=== PATIENT | male | born 1950 | race Caucasian/White ===

== ENCOUNTER 2016-10-15 09:00 | Inpatient (IN) | payer MEDICARE, OTHER ==
[~2016-10-15] VITALS: Ht 177.8 cm; Wt 118.9 kg
--- NOTE | ~2016-10-15 | DS ---
[facility]GE[facility] 66 Y [address] ROOM: [place] [address] LOCATION: [facility] ADMIT DATE: 10/21/2016 Discharge Summary DISCHARGE DATE: 10/23/2016 FAMILY PHYSICIAN: David Sellers MD ATTENDING PHYSICIAN: David Camara PRIMARY DIAGNOSIS: Osteoarthritis, left hip. SECONDARY DIAGNOSIS: 1. Hypertension. 2. Hyperlipidemia. PROCEDURE PERFORMED: Right total hip arthroplasty. HISTORY: The patient is a 66-year-old male, who presents with advanced right hip degenerative joint disease and associated severely compromised activities of daily living. The patient has decided to proceed with total left hip arthroplasty after having been thoroughly counseled regarding the risks, benefits, limitations and alternatives. Please refer to the outpatient clinic notes and admission history and physical for this patient. HOSPITAL COURSE: The patient underwent a total left hip arthroplasty on 10/20/2016 without complications. Spinal anesthesia plus subcutaneous and periarticular local anesthesia was utilized. The patient received 24 hours of perioperative prophylactic antibiotics and remained hemodynamically stable, neurovascularly intact throughout the entire hospital course. The postoperative prophylactic deep venous thrombosis prophylaxis consisted of Xarelto, early mobilization and pneumatic compression devices. Daily physical therapy for gait training, transfer training, and reinforcement of hip dislocation precautions were received. The patient progressed well in physical therapy. On the date of discharge, 10/23/2016, the incision at the hip was healing well and showed no signs of infection. DISPOSITION: DISCHARGE ACTIVITY: The patient is to bear weight as tolerated with strict hip dislocation precautions as instructed. There are to be no dressing changes. Dr. Camara is to be notified immediately if there is any increased pain, fevers, chills, erythema or drainage. DISCHARGE MEDICATIONS: 1. Xarelto 10 mg one tablet p.o. daily for 12 days for postoperative DVT prophylaxis. 2. Hydromorphone 2 mg one to two tablets p.o. every 4 hours p.r.n. for pain. 3. Diazepam one half to one tablet p.o. every 6 hours p.r.n. for muscle [facility] AGE: 66 Y [address] ROOM: [place] [address] LOCATION: [facility] ADMIT DATE: 10/21/2016 Discharge Summary DISCHARGE DATE: 10/23/2016 FAMILY PHYSICIAN: David Sellers MD ATTENDING PHYSICIAN: David Camara. He was then instructed to continue all his other pre-admission medications as instructed by his Internal Medicine doctor. FOLLOWUP: Follow up appointment is to be with Dr. Camara's office on 10/29/2016 for his initial postoperative evaluation. AMELIE TENORIO PA-C FOR MD SOFIA JULIEN/bulll /[id number] d: 10/30/16 0336 t: 11/04/16 0900, DISCHARGE SUMMARY
--- NOTE | ~2016-10-15 | OR ---
PATIENT'S NAME: [facility] AGE: 66 Y [address] ROOM: [address] [address] LOCATION: [facility] ADMIT DATE: 10/21/2016 OR/Procedure Report DISCHARGE DATE: FAMILY PHYSICIAN: Aileen Sellers MD ATTENDING PHYSICIAN: AILEEN SCOTT SURGEON: Aileen Scott MD COMMERCIAL ILLUSTRATOR: 1. SYDNI Pedroza. 2. Srinivasa Kumari CST/RYAN. DATE OF PROCEDURE: 10/21/2016 PRE-OP DIAGNOSIS: Primary osteoarthritis, right hip. POST-OP DIAGNOSIS: Primary osteoarthritis, right hip. OPERATION: Right total hip arthroplasty. ANESTHESIA: Spinal anesthesia plus subcutaneous and periarticular local anesthesia (ropivacaine with epinephrine). ESTIMATED BLOOD LOSS: Approximately 250 mL. DRAIN: None. SPECIMEN: None. COMPLICATIONS: None. IMPLANTS: 1. Ayla Trident Tritanium size 60 mm hemispherical uncemented acetabular shell with one dome hole cover and no screws. 2. Harrison X3 neutral acetabular polyethylene liner with 36 mm inner diameter. 3. DeP[place] Baca size 7, high-offset uncemented femoral component with hydroxyapatite coating. 4. 36 mm diameter Biolox femoral head with +1.5 mm neck length. INDICATION FOR SURGERY: The patient is a 66-year-old male who presents with advanced right hip primary osteoarthritis and associated severely compromised activities of daily living. The patient has decided to proceed with hip replacement after having been thoroughly counseled regarding the associated risks, benefits, and limitations. We have specifically reviewed the risks and implications of infection, deep venous thrombosis, pulmonary embolism, mortality, neurovascular complications, blood transfusion (and associated potential for disease transmission or transfusion reaction), stiffness, instability, leg length discrepancy, mechanical deterioration of the PATIENT'S NAME: [facility] AGE: 66 Y [address] ROOM: [address] [address] LOCATION: [facility] ADMIT DATE: 10/21/2016 OR/Procedure Report DISCHARGE DATE: FAMILY PHYSICIAN: Aileen Sellers MD ATTENDING PHYSICIAN: AILEEN SCOTT components (due to wear and to loosening), and the potential need for revision. DESCRIPTION OF PROCEDURE: The patient was positioned in a lateral decubitus position with the right side up after administration of anesthesia and prophylactic antibiotics. An axillary roll was placed and the non-operative leg was well padded. The pelvis was locked perpendicularly to the floor on a pegboard. The right hip and entire operative extremity were prepped and draped with vigilant sterile technique. The patient's name as well as the intended operative side and procedure were confirmed with a verbal time-out involving myself, the circulating nurse, the scrub nurse, and the anesthesiologist. The right hip was approached through a standard posterolateral incision. The fascia kaya and the gluteus oracio fascia were sharply divided in line with the overlying skin incision. The sciatic nerve was identified and was vigilantly protected throughout the entire case. The short external rotators and posterior capsule were divided from their respective femoral insertions and tagged with four #1 Ethibond sutures for later repair. The hip was posteriorly dislocated with combined flexion, adduction, and internal rotation. The femoral neck osteotomy was performed with an oscillating saw. Inspection of the femoral head demonstrated full-thickness loss of articular cartilage throughout its weightbearing surface. There was a large osteophyte at the periphery of the femoral head. There was no femoral head collapse. Circumferential acetabular exposure was obtained. Examination of acetabulum demonstrated full-thickness loss of articular cartilage throughout the anterior superior half of the acetabulum. There was extensive inner perimeter tearing of the acetabular labrum. There was a moderate-sized medial acetabular osteophyte. There was a large effusion consisting of benign- appearing translucent synovial fluid. There were no loose bodies. Remnants of the acetabular labrum were sharply thoroughly excised. The acetabulum was sequentially progressively reamed up to 59 mm with hemispherical power reamers. The final acetabular shell was impacted into position in 20 degrees of anteversion and 45 degrees of inclination. An excellent press-fit was obtained. No supplemental dome screw fixation was necessary. A neutral trial liner was inserted. Attention was next focused upon femoral preparation. The femoral canal initiator was utilized. The femoral canal was reamed by hand to a size 5 and subsequently on power to a size 7 with tapered conical reamers. The size 7 reamer tightly engaged the endosteal cortex of the proximal femur. The femoral canal was subsequently sequentially progressively broached up to a PATIENT'S NAME: [facility] AGE: 66 Y [address] ROOM: [id number] [place] [id number] LOCATION: [facility] ADMIT DATE: 10/21/2016 OR/Procedure Report DISCHARGE DATE: FAMILY PHYSICIAN: Aileen Sellers MD ATTENDING PHYSICIAN: AILEEN SCOTT size 7. The size 7 broach obtained excellent axial and rotational stability. Trial reductions with the above specified construct yielded acceptable stability and acceptable reproduction of leg length and offset. All trial components were removed. The final acetabular liner was inserted with excellent circumferential visualization of its locking mechanism to assure adequate deployment. The final femoral component was impacted into position. The femoral component achieved excellent axial and rotational stability. The trunnion of the femoral component was vigilantly protected prior to placement of the femoral head. The trunnion of the femoral component was thoroughly cleaned and dried prior to placement of the femoral head. The incision was thoroughly irrigated with bacteriostatic pulsatile saline lavage multiple times throughout the case. The entire joint space was thoroughly inspected and thoroughly irrigated to assure that there was no residual debris of any sort. A final reduction was then performed. After final reduction, the hip could be firmly externally rotated in full extension and zero degrees of abduction without anterior subluxation. In neutral rotation and zero degrees of abduction, the hip could be firmly flexed to 120 degrees without instability. At 90 degrees of flexion and zero degrees abduction, the hip could be internally rotated to 70 degrees before there was any hint of posterior subluxation. The posterior capsule and short external rotators were repaired through two drill holes in the posterior aspect of the greater trochanter. The fascia kaya and gluteus oracio fascia were closed with multiple simple and [id number] interrupted # 1 Ethibond and #1 Vicryl sutures. Subcutaneous tissues were thoroughly re-irrigated with bacteriostatic pulsatile saline lavage. Subcutaneous tissues were re-approximated with simple buried interrupted #0 Vicryl sutures. The skin was closed with superficial buried interrupted 2-0 Vicryl sutures followed by a running subcuticular 3-0 Monocryl suture, followed by Octylseal, followed by Steri- Strips with benzoin, followed by an occlusive Mepilex dressing. There were no intra-operative complications. It should be noted that the physician's administrative assistant coordinator played an active, integral role throughout this entire operation. By providing expert retraction, they greatly facilitated and expedited safe and effective exposure of the proximal femur and acetabulum for preparation and implantation of the components. They were also actively involved in the patient's positioning, prepping and draping, as well as wound closure. PATIENT'S NAME: VIRY [facility] AGE: 66 Y [address] ROOM: [id number] [place] [id number] LOCATION: [facility] ADMIT DATE: 10/21/2016 OR/Procedure Report DISCHARGE DATE: FAMILY PHYSICIAN: Aileen Sellers MD ATTENDING PHYSICIAN: AILEEN SCOTT AILEEN SCOTT MD JMAbundio/modl /[id number] d: 10/21/162013 t: 10/31/162034, OPERATIVE SUMMARY
[~2016-10-15 09:00] MED LIST: COLACE100 MG PO; DILAUDID 2MG(HYD2 MG PO; HYDRODIURIL12.5 MG PO; LISINOPRIL20 MG PO; LOPRESSOR25 MG PO; MIRALAX17 GM PO; NEURONTIN300 MG PO; TYLENOL EXTRA500 MG PO; XARELTO10 MG PO
[2016-10-23] MEDS ORDERED: TYLENOL EXTRA500 MG PO (09:58)
[2016-10-23] MEDS ORDERED: COLACE100 MG PO (09:59)
[2016-10-23] MEDS ORDERED: MIRALAX17 GM PO (10:01)
[2016-10-23] MEDS ORDERED: XARELTO10 MG PO (10:03)
[2016-10-23] MEDS ORDERED: VALIUM5 MG PO (10:04)
[2016-10-23] MEDS ORDERED: DILAUDID 2MG(HYD2 MG PO (10:06)
[2016-10-23] MEDS ORDERED: ASPIRIN EC81 MG PO (11:48)
[2016-10-23] MEDS ORDERED: LIPITOR20 M1 PO (11:48)
== END 2016-10-23 14:30 | disposition disaster alternative care site (69) | DRG 470 ==
LOC: G3N 10-21 06:13
PROVIDERS: ADMIT Orthopaedic Surgery
PROC: 0SR904A Replacement of Right Hip Joint with Ceramic on Polyethylene Synthetic Substitute, Uncemented, Open Approach (ICD-10-PCS; principal; 2016-10-21)
DX: M16.11 Unilateral primary osteoarthritis, right hip (principal); Z68.41 Body mass index [BMI] 40.0-44.9, adult; I10 Essential (primary) hypertension; E66.9 Obesity, unspecified; E78.5 Hyperlipidemia, unspecified; R73.03 Prediabetes; Z96.651 Presence of right artificial knee joint; Z79.82 Long term (current) use of aspirin
CPT/HCPCS: C1776; J0690; J1885; J2001; J2795; J7030